=== PATIENT | female | born 1960 | race Caucasian/White ===

== ENCOUNTER 2017-06-09 06:13 | Inpatient (IN) ==
--- NOTE | 2017-06-08 21:12 | Discharge Summary ---
<Julissa Mike Juan Francisco - Last Filed: 06/08/17 21:08> Date of Encounter: 06/08/17 - Discharge Diagnosis (1) Arthritis of knee Priority: Primary Status: Acute (2) Status post total knee replacement, left Priority: Primary Status: Acute (3) HTN (hypertension) Priority: Secondary Status: Acute Qualifiers: Hypertension type: essential hypertension Qualified Code(s): I10 - Essential (primary) hypertension (4) Obesity Priority: Secondary Status: Chronic Qualifiers: Obesity type: due to excess calories Obesity classification: unspecified obesity classification Serious obesity comorbidity presence: without serious comorbidity Qualified Code(s): E66.09 - Other obesity due to excess calories; Z68.32 - Body mass index (BMI) 32.0-32.9, adult - Discharge Medications Prescriptions: Aspirin Enteric Coated [Aspirin EC] 325 mg PO DAILY #21 tablet. OxyCODONE Immed Rel [Roxicodone 5 MG] 5 - 10 mg PO Q6HR PRN #40 tablet PRN Reason: Pain Home Medications: Aspirin Enteric Coated [Aspirin EC] 325 mg PO DAILY #21 tablet. 06/08/17 [Rx] OxyCODONE Immed Rel [Roxicodone 5 MG] 5 - 10 mg PO Q6HR PRN #40 tablet 06/08/17 [Rx] Citalopram [CeleXA] 20 mg PO DAILY 06/09/17 [History] Diclofenac Sodium [Voltaren] 50 mg PO Q8HR PRN 06/09/17 [History] DiphenhydraMINE [Benadryl] 50 mg PO HS 06/09/17 [History] Ibuprofen 800 mg PO TID PRN 06/09/17 [History] Losartan Potassium [Cozaar] 100 mg PO DAILY 06/09/17 [History] Ranitidine HCl [Acid Telephone Operator] 150 mg PO HS 06/09/17 [History] Sodium Chloride/Sodium Bicarb [Nasa Mist Saline [place]] 1 spray NS DAILY [History] Tizanidine HCl 4 mg PO TID PRN 06/09/17 [History] Tramadol HCl [Ultram] 50 mg PO HS PRN 06/09/17 [History] Allergies/Adverse Reactions: Allergies codeine Adverse Reaction (Unverified 05/30/17 09:54) Difficulty Breathing Primary care physician: Favian Gomez MD - Discharge Instructions Follow Up With: Favian Gomez MD [Primary Care Provider] - - Hospital Course Hospital course: Ms. Leal is a 57 year old female - Time Spent with Patient Total time spent providing and/or coordinating discharge services: <ShermanAngel Collins - Last Filed: 06/09/17 07:53> Date of Encounter: 06/09/17 - Discharge Diagnosis (1) Arthritis of knee Priority: Primary Status: Chronic (2) Status post total knee replacement, left Priority: Primary Status: Acute (3) HTN (hypertension) Priority: Secondary Status: Chronic Qualifiers: Hypertension type: essential hypertension Qualified Code(s): I10 - Essential (primary) hypertension (4) Obesity Priority: Secondary Status: Chronic Qualifiers: Obesity type: due to excess calories Obesity classification: adult class 1 (BMI 30 ? 34.9) Serious obesity comorbidity presence: without serious comorbidity Body mass index: BMI 32.0-32.9 Qualified Code(s): E66.09 - Other obesity due to excess calories; Z68.32 - Body mass index (BMI) 32.0-32.9, adult Primary care physician: Favian Gomez MD - Hospital Course Hospital course: Ms. Leal is a 57 year old female - Time Spent with Patient Total time spent providing and/or coordinating discharge services:
--- NOTE | 2017-06-09 06:26 | History & Physical Report ---
Date of Encounter: 06/09/17 Time of Encounter: 06:25 24 Hour HP Update - Instructions Instructions: If the History and Physical is less than 30 days old and was completed prior to A.M. admission and or procedure and has NOT been updated on calendar day of procedure please complete this update prior to performing procedure. - Update Patient reports changes in Medical Condition: No Changes in examination, assessment, or condition: No Changes in Medication: No Preop tests/diagnostics Reviewed: Yes Surgery Remains Indicated: Yes Consent for Planned Operative Procedure(s) Verified: Yes - Pre-Operative Checklist Preoperative Checklist Indicated: No Prophylactic Antibiotic Ordered: Yes Is VTE Prophylaxis Indicated?: Yes
[2017-06-09] MEDS ORDERED: Lidocaine -MPF 1% 2 ML VIAL ID ONE (06:31)
[2017-06-09] MEDS ORDERED: CeFAZolin Pre 2,000 MG/100 ML 2,000 MG/100 ML BAG IVPB ONE (06:31)
[2017-06-09] MEDS ORDERED: Ringers Solution, Lactated 1,000 ML IVC SCH ×2 (06:45→10:35)
[2017-06-09] MEDS ORDERED: *HR* Propofol 200 MG/20 ML VIAL IVP ONE (07:53)
[2017-06-09] MEDS ORDERED: *HR* Midazolam HCl 2 MG/2 ML VIAL ONE (07:53)
[2017-06-09] MEDS ORDERED: *HR* FentaNYL (PF) 100 MCG/2 ML VIAL ONE ×2 (07:53→08:35)
[2017-06-09] MEDS ORDERED: Lidocaine -MPF 2% 2 ML VIAL ONE ×2 (07:58→08:04)
[2017-06-09] MEDS ORDERED: ROPIVACAINE HCL/PF 0.5% 30 ML VIAL ONE (08:02)
[2017-06-09] MEDS ORDERED: Bupivacaine/Clonidine Syringe 1 EACH SYRINGE ONE (08:03)
--- NOTE | 2017-06-09 08:06 | Anesthesia Evaluation PreOp ---
Date of Encounter: 06/09/17 Time of Encounter: 08:05 - Past History Planned Operation: Left total knee Cardiac History: HTN, Hyperlipidemia Pulmonary History: Denies Any Significant HX PNEUMATIC TOOL REPAIRER History: Denies Any Significant HX Other Medical History: GERD Anesthesia History: No Prior Anesthetic Complications, Past Anesthesia Alcohol Use: none Drug use: none Medications and Allergies Aspirin Enteric Coated [Aspirin EC] 325 mg PO DAILY #21 tablet. 06/08/17 [Rx] OxyCODONE Immed Rel [Roxicodone 5 MG] 5 - 10 mg PO Q6HR PRN #40 tablet 06/08/17 [Rx] Citalopram [CeleXA] 20 mg PO DAILY 06/09/17 [History] Diclofenac Sodium [Voltaren] 50 mg PO Q8HR PRN 06/09/17 [History] DiphenhydraMINE [Benadryl] 50 mg PO HS 06/09/17 [History] Ibuprofen 800 mg PO TID PRN 06/09/17 [History] Losartan Potassium [Cozaar] 100 mg PO DAILY 06/09/17 [History] Ranitidine HCl [Acid Cabin Supervisor] 150 mg PO HS 06/09/17 [History] Sodium Chloride/Sodium Bicarb [Nasa Mist Saline [place]] 1 spray NS DAILY [History] Tizanidine HCl 4 mg PO TID PRN 06/09/17 [History] Tramadol HCl [Ultram] 50 mg PO HS PRN 06/09/17 [History] Allergies codeine Adverse Reaction (Unverified 05/30/17 09:54) Difficulty Breathing - Meds/Allergy Pre-op Review Medications Reviewed: Yes Allergies Reviewed: Yes Beta Blockers on Current Med List: No Anesthesia Results - Labs Laboratory Tests 05/30/17 05/30/17 05/30/17 10:00 10:00 10:00 WBC 4.6 Hgb 14.7 Hct 45.4 H Plt Count 220 PT 11.1 INR 1.0 APTT 28.2 Sodium 140 Potassium 3.9 Chloride 106 Carbon Dioxide 26 BUN 15 Creatinine 0.68 Est GFR ( Amer) > 60 Est GFR (Non-Af Amer) > 60 BUN/Creatinine Ratio 22 - Imaging EKG: report reviewed, image reviewed (SR; pos LAE) Anesthesia Exam Last Vital Signs Temp 98.7 F 06/09/17 06:37 Pulse 85 06/09/17 06:37 Resp 18 06/09/17 06:37 BP 138/88 06/09/17 06:37 Pulse Ox 99 06/09/17 06:37 Weight: 83 kg NPO (# of Hours): >> 8 hrs - HEENT Pupil (Motor): Pupils equal, EOMI Mallampati: III Teeth: Poor dentition Oral Opening: Greater than 3 - PNEUMATIC TOOL REPAIRER LOC: Oriented PNEUMATIC TOOL REPAIRER Motor: Normal RUE, Normal LUE, Normal RLE, Normal LLE, Normal Face - Cardiac Rhythm: Regular Murmur: None - Pulmonary Breath Sounds: bilateral Clear Respiratory Effort: Symmetrical Anesthesia Assess/Plan ASA Score: 2 Modified [place] Scale for Level of Consciousness: Cooperative, oriented, and tranquil Anesthetic Plan: General, Regional Monitoring Plan: Standard Monitors Recovery Plan: PACU
[2017-06-09] MEDS ORDERED: Scopolamine Patch 1.5 MG PATCH.TD72 ONE (08:07)
[2017-06-09] MEDS ORDERED: Famotidine 20 MG/2 ML VIAL ONE (08:08)
[2017-06-09] MEDS ORDERED: Dexamethasone 4 MG/ML VIAL ONE (08:32)
[2017-06-09] MEDS ORDERED: Ondansetron 4 MG/2 ML VIAL ONE (08:32)
--- NOTE | 2017-06-09 08:43 | Anesthesia Procedures ---
Date of Encounter: 06/09/17 Time of Encounter: 08:41 Procedures: Anesthesia - Nerve Block Procedure Date: 06/09/17 Time: 08:41 Allergies/Adv Reactions: codeeine Pre-op Diagnosis: djd L knee Surgical Procedure: L TKA Checklist: Correct Patient Identifier Correct side: Left Blood Thinner: No Monitor Applied: EKG, BP, Pulse Oximetry Supplemental Oxygen via Nasal Cannula (L/min): 3 Sedation: Versed (mg): 2 Indication: Post Op Analgesia Pre-op Neuro Deficits: No Block Type: Femoral, Other ([place]) Catheter placed: No Sterile Technique: Yes Ultrasound used: Yes Anatomy identified: Yes Visual spread of Local: Yes Neuro Stimulation: Yes Nerve Stimulator Range: 0.2 - 0.4 mA Blood on Needle Aspiration: No Smooth Injection of Local: Yes Pain with Injection of Local: No Prep: Chlorhexadine Needle: 22 x 50 mm Stimuplex, 21 x 100 mm Stimuplex Local: 0.25% Bupivicaine w/Clonidine 20 mcg/cc, Ropivacaine (0.5% 30 cc) Volume (cc): 30 + 20 Number of Attempts: 1 Complications: None/effective block Vitals: Vital Signs/O2 Sat, Most Current Temp Pulse Resp BP Pulse Ox 98.7 F 96 18 188/95 96 06/09/17 06:37 06/09/17 08:19 06/09/17 06:37 06/09/17 08:19 06/09/17 08:19 Comments: aseptic, VSS
[2017-06-09] MEDS ORDERED: Ondansetron 4 MG/2 ML VIAL IVP PRN ×2 (08:48→10:35)
--- NOTE | 2017-06-09 09:03 | Orthopedic Operative Note ---
Date of procedure: 06/09/17 Pre-op diagnosis: Left knee arthritis Post-op diagnosis: same Procedure: Procedure: Left Total knee replacement Estimated blood loss: 200 cc Hardware: Metal and polyethylene replacement. Arthrex Femur: 3 Tibia: 3 PS insert: 13 Patella: 34 Exam Under anesthesia: Full flexion and extension no instability Procedural Notes: Grade 4 arthritic changes medial compartment and patellofemoral joint Operative procedure: The patient was brought to the operating room and placed on the operating room table. After general anesthesia was administered the operative knee was examined. Findings were noted in the exam under anesthesia. The operative extremity was prepped and draped in sterile surgical fashion. The patient received IV antibiotics prior to skin incision. A standard midline incision was made centered over the patella. The incision was made through the skin and subcutaneous tissue. A medial parapatellar tendon approach was performed. Care was taken to preserve tissue along the medial aspect of the patella. And to protect the patella tendon. The deep MCL was released off the medial tibia. The infra patella fat pad was excised. Knee was brought into flexion. She noted to have grade 4 arthritic changes medial compartment and patellofemoral joint. The entry hole was made for the intramedullary femoral guide. The guide was seated in 6 degrees of valgus. Anterior cut was made followed by the distal cut. The ACL the PCL the medial and the lateral menisci were excised. The tibia was subluxed forward. The entry hole was made for the intramedullary tibial guide. Guide was seated to resect 2 mm off the more abnormal side. The knee was brought into flexion the distal femur was sized 3. The femoral guide was seated , the anterior cut was made followed by the posterior condylar cut, followed by the chamfer cuts. The finishing guide was seated the box cut was made and the lug holes were drilled. The tibia was sized 3, the tibial tray was seated and prepared with the large drill followed by the fin cutter. Trial reduction revealed full extension no varus valgus instability with the appropriate 13 PS Mildred. The patella was everted and cut was made at the level of the insertion of the quadriceps and patella tendon. The patella was sized to a 34 the guide was seated and the lug holes are drilled. Trial reduction revealed excellent patella tracking. All trial components were removed all bony surfaces were irrigated. The tibia was cemented first followed by the femur. The 13 PS Mildred was seated and the knee was brought into full extension. The patella was cemented and held in place with the patellar holding clamp. After the cement had hardened, the knee sat for 2 minutes with a Betadine saline solution. The knee was then irrigated out with 2 L of pulse irrigation. The PA close the knee. The extensor mechanism was closed with #2 FiberWire suture and #2 PDS suture. The subcutaneous tissue was then irrigated and closed deep with #1 PDS suture superficially with 0 PDS suture and skin was closed with skin gisselle. The patient was then placed in a sterile dressing and a postoperative brace extubated and transferred to recovery room in stable condition. Anesthesia: SERJIO Surgeon: Angel Whitaker Research Administrator: Julissa Mike Condition: stable Disposition: PACU
[2017-06-09] MEDS ORDERED: *HR* HYDROmorphone (PF) 1 MG/ML SYRINGE ONE ×2 (09:35→09:53)
[2017-06-09] MEDS: *HR* HYDROmorphone (PF) 1 MG/ML SYRINGE IVP PRN ×4 (09:40→09:55)
[2017-06-09 09:50] LABS: Hematocrit 42.3 % (35.3-44.9); Hemoglobin 13.7 g/dL (11.5-15.4)
[2017-06-09] MEDS ORDERED: Acetaminophen IV 1,000 MG/100 ML INFUS..BTL IVPB ONE (10:14)
[2017-06-09] MEDS ORDERED: ceFAZolin 2,000 MG in D5% in Water 100 ML IVPB SCH (10:35)
[2017-06-09] MEDS ORDERED: MOM Conc 10 ML UD.LIQ PO PRN (10:35)
[2017-06-09] MEDS ORDERED: Sennosides 8.6 MG TABLET PO PRN (10:35)
[2017-06-09] MEDS ORDERED: traMADol 50 MG TABLET PO PRN (10:35)
[2017-06-09] MEDS ORDERED: Temazepam 15 MG CAPSULE PO PRN (10:35)
[2017-06-09] MEDS ORDERED: Naloxone 0.4 MG/ML INJ IVP PRN (10:35)
[2017-06-09] MEDS ORDERED: Ibuprofen 800 MG TABLET PO PRN (10:35)
[2017-06-09] MEDS ORDERED: *HR* HYDROmorphone (PF) 1 MG/ML SYRINGE IVP PRN (10:35)
[2017-06-09] MEDS ORDERED: tiZANidine 4 MG TABLET PO PRN (10:35)
[2017-06-09] MEDS ORDERED: *HR* OxyCODONE Immed Rel 5 MG TABLET PO PRN ×2 (10:35)
[2017-06-09] MEDS ORDERED: Saline Nasal Spray 44 ML BOTTLE NS SCH (10:35)
--- NOTE | 2017-06-09 10:43 | Anesthesia Evaluation Post Op ---
Date of Encounter: 06/09/17 Time of Encounter: 10:43 - Vital Signs Vital Signs: Last Vital Signs Temp 97.2 F L 06/09/17 10:30 Pulse 80 06/09/17 10:30 Resp 16 06/09/17 10:30 BP 135/78 06/09/17 10:30 Pulse Ox 100 06/09/17 10:30 - Lungs Lungs: Clear Ascult./Percussion - Airway Airway: Non-obstructed - Cardiovascular Regular Rate - Mental Status Mental Status: Alert & Oriented, Answers Appropriately - Pain Pain Scale: 4 - Nausea Vomiting Nausea Vomiting: Not Present - Hydration Hydration: Ice chips - Discharge PostOp Status: Transfer Patient to floor
[2017-06-09 13:27] VITALS: BP 97/59
[2017-06-09] MEDS ORDERED: *HR* Enoxaparin 30 MG/0.3 ML SYRINGE SQ SCH ×3 (14:45→18:00)
[2017-06-09] MEDS ORDERED: Famotidine 20 MG TABLET PO SCH (21:00)
== END 2017-06-09 15:31 | disposition home or self-care (01) | DRG 470 ==
LOC: SAMDAY 06:13 → 3NENU 10:56
PROVIDERS: ADMIT Orthopaedic Surgery; ATTEND Orthopaedic Surgery